=== PATIENT | male | born 2000 | race Caucasian/White ===

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

== ENCOUNTER 2019-03-25 15:49 | Emergency (ER) | payer BC ==
[2019-03-25] MEDS ORDERED: NS 1,000 ML IV ONE ×2 (16:09→16:47)
[2019-03-25] MEDS ORDERED: FAMOTIDINE 20 MG/NACL 50 ML IV ONE (16:09)
[2019-03-25 16:14] LABS: PLATELET COUNT 244 10^3/uL (150-400)
[2019-03-25] MEDS ORDERED: HYDROmorphONE/DILAUDID 2 MG/ML INJ IVP ONE (16:47)
[2019-03-25] MEDS ORDERED: ONDANSETRON 4 MG/2 ML VIAL IVP ONE (16:47)
[2019-03-25] MEDS ORDERED: IOPAMIDOL (ISOVUE-300) 100 ML BTL ONE (16:49)
--- NOTE | 2019-03-25 16:55 | EDPHY ---
H & P Time Seen by Provider: 03/25/19 16:09 HPI/ROS: HPI Abdominal pain. 18-year-old male by private vehicle. This patient reports that he ate lunch at about 1:00 p.m.. He then laid down to take a nap. He woke up from the nap with what he describes as severe mid abdominal pain described as sharp and cramping. He has had nausea with dry heaving. He reports that he ate [place] food. No diarrhea. Last bowel movement was this morning. He describes this as normal. No bloody or melenic stool. No prior abdominal surgical history. He has not had this pain in the past. ROS: Constitutional: No fever, no chills. No weakness. Eyes: No discharge. No changes in vision. ENT: No sore throat. No nasal congestion or rhinorrhea. Respiratory: No cough. No shortness of breath. Cardiac: No chest pain, no palpitations. Gastrointestinal: As above, no diarrhea. Genitourinary: No hematuria. No dysuria or increased frequency with urination. Musculoskeletal: No back pain. No neck pain. No myalgias or arthralgias. Skin: No rashes. Neurological: No headache. No focal weakness or altered sensation. Past medical history: Old left hand injury from cutting oysters. Social history: Drinks alcohol socially. Student [employer]. Nonsmoker. Physical Exam: General Appearance: Alert, he appears uncomfortable. This patient is responding to questions appropriately and in full sentences. This patient appears well-hydrated and well-nourished. Eyes: Pupils equal and round no pallor or injection. No lid edema, erythema or injection. Respiratory: There are no retractions, lungs are clear to auscultation with good air movement bilaterally. Cardiovascular: Regular rate and rhythm. No murmur. Gastrointestinal: Abdomen is is tender on palpation throughout the mid and upper abdomen with voluntary guarding, no masses, bowel sounds are appreciated. No focal tenderness at McBurney's point. No Macias sign. Testicular exam: No clinical evidence of torsion or other pathology. Neurological: Motor sensory function is grossly intact. Cranial nerves are normal. Gait is normal. Skin: Warm and dry, no rashes. Musculoskeletal: No CVA tenderness bilaterally. Extremities are symmetrical. All joints range without pain or impingement. Psychiatric: No agitation. No depression. Database: EKG: Imaging: CT abdomen and pelvis with IV contrast: This is a negative study. The appendix is well visualized and is normal. There is no evidence of obstruction. No evidence of intussusception or other significant pathology. Results were discussed with staff radiologist Dr. Kana Wesley. Procedures: Emergency department course: Triage vital signs reviewed and are normal. The patient is afebrile. IV was established. He was started on IV normal saline. He was initially given 20 mg of IV Pepcid, 4 mg of IV Zofran and 1 mg of IV hydromorphone. 4:50 p.m., patient has a normal creatinine. CT abdomen and pelvis with IV contrast to be obtained. 5:15 p.m., the patient was re-evaluated, feeling much better at this time after above medications. Results of his CT imaging and blood work discussed with him. I feel his presentation is now more consistent with a food-borne illness given the onset of symptoms. Waiting on urinalysis. 6:00 p.m., the patient was re-evaluated, resting comfortably at this time. Results of his diagnostic workup in the emergency department discussed with him. He feels comfortable going home at this time. Repeat abdominal exam is soft, nontender nondistended. He has been taking oral fluids without issue. I feel he is safe for discharge. Follow-up and return to emergency department precautions reviewed. All of his questions were answered. He will be discharged with his parents. He was discharged in good condition. Differential Diagnosis: The differential diagnosis on this patient includes but is not limited to volvulus, ulcerative gastritis, pancreatitis, cholecystitis. This represents a partial list of diagnoses considered. These considerations are based on history , physical exam, past history, reassessment and diagnostic testing. Smoking Status: Never smoked Constitutional: Initial Vital Signs Temperature (C) 36.9 C 03/25/19 15:52 Heart Rate 68 03/25/19 15:52 Respiratory Rate 18 03/25/19 15:52 Blood Pressure 114/63 03/25/19 15:52 O2 Sat (%) 100 03/25/19 15:52 O2 Delivery Mode Room Air Allergies/Adverse Reactions: Penicillins Allergy (Verified 03/25/19 15:53) Home Medications: Medication Instructions Recorded Ondansetron Odt [Zofran Odt 4 mg 4 mg PO Q4PRN PRN #10 tab 03/25/19 (*)] Medical Decision Making - Diagnostics Imaging Results: Imaging Impressions Abdomen CT 03/25/19 16:47 Impression: 1. Normal CT abdomen and pelvis with contrast enhancement. 2. No CT evidence of appendicitis, abscess or bowel obstruction. Findings and recommendations discussed with Emergency Department physician, Giancarlo Parra MD at 17:11 hour, 03/25/2019. Final report concurs with initial preliminary interpretation. - Data Points Laboratory Results: Laboratory Results 03/25/19 16:00 03/25/19 16:00 03/25/19 03/25/19 03/25/19 17:21 16:00 16:00 WBC 15.84 10^3/uL H 10^3/uL (3.80-9.50) RBC 5.38 10^6/uL 10^6/uL (4.40-6.38) Hgb 16.1 g/dL g/dL (13.7-17.5) Hct 46.2 % % (40.0-51.0) MCV 85.9 fL fL (81.5-99.8) MCH 29.9 pg pg (27.9-34.1) MCHC 34.8 g/dL g/dL (32.4-36.7) RDW 12.6 % % (11.5-15.2) Plt Count 244 10^3/uL 10^3/uL (150-400) MPV 9.2 fL fL (8.7-11.7) Neut % (Auto) 64.2 % % (39.3-74.2) Lymph % (Auto) 23.2 % % (15.0-45.0) Rhea % (Auto) 11.0 % % (4.5-13.0) Eos % (Auto) 0.9 % % (0.6-7.6) Baso % (Auto) 0.4 % % (0.3-1.7) Nucleat RBC Rel Count 0.0 % % (0.0-0.2) Absolute Neuts (auto) 10.17 10^3/uL H 10^3/uL (1.70-6.50) Absolute Lymphs (auto) 3.67 10^3/uL H 10^3/uL (1.00-3.00) Absolute Monos (auto) 1.74 10^3/uL H 10^3/uL (0.30-0.80) Absolute Eos (auto) 0.14 10^3/uL 10^3/uL (0.03-0.40) Absolute Basos (auto) 0.06 10^3/uL 10^3/uL (0.02-0.10) Absolute Nucleated RBC 0.00 10^3/uL 10^3/uL (0-0.01) Immature Gran % 0.3 % % (0.0-1.1) Immature Gran # 0.05 10^3/uL 10^3/uL (0.00-0.10) RBC/WBC/PLT Morphology TNP Platelet Estimate TNP Sodium 141 mEq/L mEq/L (135-145) Potassium 4.0 mEq/L mEq/L (3.5-5.2) Chloride 102 mEq/L mEq/L (97-110) Carbon Dioxide 28 mEq/l mEq/l (22-31) Anion Gap 11 mEq/L mEq/L (6-14) BUN 20 mg/dL mg/dL (7-23) Creatinine 0.9 mg/dL mg/dL (0.7-1.3) Estimated GFR > 60 Glucose 89 mg/dL mg/dL (70-100) Calcium 9.1 mg/dL mg/dL (8.5-10.4) Total Bilirubin 0.4 mg/dL mg/dL (0.1-1.4) Conjugated Bilirubin 0.0 mg/dL mg/dL (0.0-0.5) Unconjugated Bilirubin 0.4 mg/dL mg/dL (0.0-1.1) AST 68 IU/L H IU/L (17-59) ALT 50 IU/L IU/L (21-72) Alkaline Phosphatase 64 IU/L IU/L (38-126) Total Protein 7.5 g/dL g/dL (6.3-8.2) Albumin 4.4 g/dL g/dL (3.5-5.0) Lipase 86 IU/L IU/L (23-300) Urine Color PALE YELLOW Urine Appearance CLEAR Urine pH 8.0 H (5.0-7.5) Ur Specific [place] 1.015 (1.002-1.030) Urine Protein NEGATIVE (NEGATIVE) Urine Ketones NEGATIVE (NEGATIVE) Urine Blood NEGATIVE (NEGATIVE) Urine Nitrate NEGATIVE (NEGATIVE) Urine Bilirubin NEGATIVE (NEGATIVE) Urine Urobilinogen NEGATIVE EU EU (0.2-1.0) Ur Leukocyte Esterase NEGATIVE (NEGATIVE) Urine RBC 1-3 /hpf /hpf (0-3) Urine WBC 1-3 /hpf /hpf (0-3) Ur Epithelial Cells NONE SEEN /lpf /lpf (NONE-1+) Urine Mucus TRACE /lpf /lpf (NONE-1+) Urine Glucose NEGATIVE (NEGATIVE) Medications Given: Discontinued Medications Hydromorphone HCl (Dilaudid) 1 mg IVP EDNOW ONE Stop: 03/25/19 16:48 Last Admin: 03/25/19 16:51 Dose: 1 mg Sodium Chloride (Ns) 1,000 mls @ 0 mls/hr IV EDNOW ONE; Wide Open PRN Reason: Protocol Stop: 03/25/19 16:10 Last Admin: 03/25/19 16:17 Dose: 1,000 mls Famotidine/Sodium Chloride (Pepcid 20 Mg (Premix)) 50 mls @ 200 mls/hr IV EDNOW ONE Stop: 03/25/19 16:23 Last Admin: 03/25/19 16:17 Dose: 50 mls Sodium Chloride (Ns) 1,000 mls @ 0 mls/hr IV EDNOW ONE; Wide Open PRN Reason: Protocol Stop: 03/25/19 16:48 Last Admin: 03/25/19 16:55 Dose: 1,000 mls Ondansetron HCl (Zofran) 4 mg IVP EDNOW ONE Stop: 03/25/19 16:48 Last Admin: 03/25/19 16:52 Dose: 4 mg Departure - Departure Disposition: Home, Routine, Self-Care Clinical Impression: Abdominal pain, Food poisoning Condition: Fair Instructions: Acute Nausea and Vomiting (ED), Abdominal Pain (ED) Additional Instructions: Read and follow provided instructions. Follow-up with your primary care physician in 1-2 days for re-evaluation. Take medication as prescribed for nausea. Return to the emergency department for worsening abdominal pain, vomiting and inability to keep fluids down despite medications, fever or other serious concerns. Referrals: NONE *PRIMARY CARE P,. [Primary Care Provider] - As per Instructions Prescriptions: Ondansetron Odt [Zofran Odt 4 mg (*)] 4 mg PO Q4PRN PRN #10 tab PRN Reason: For Nausea & Vomiting
[2019-03-25 18:13] VITALS: BP 124/73
== END 2019-03-25 18:18 | disposition home or self-care (01) ==
DX: T62.8X1A Toxic effect of other specified noxious substances eaten as food, accidental (unintentional), initial encounter (principal); R10.9 Unspecified abdominal pain; R11.0 Nausea
CPT/HCPCS: 96374; J1170; J2405; Q9967